=== PATIENT | male | born 1990 | race American Indian/Alaskan Native ===

== ENCOUNTER 2018-02-06 21:57 | Emergency (ER) | payer MEDICAID ==
[2018-02-06] MEDS ORDERED: Gentamicin 0.3% Ophth Soln 5 ML Bottle EYELF ONE (21:58)
[2018-02-06 22:07] VITALS: BP 147/95
[2018-02-06] MEDS ORDERED: Fluorescein 1 MG Ophth Strip EYELF ONE (22:23)
[2018-02-06] MEDS ORDERED: Tetracaine HCl/PF 0.5% 4 ML Bottle EYELF ONE (22:24)
[2018-02-07] MEDS ORDERED: Gentamicin 0.3% Ophth Soln 5 ML Bottle ONE (00:54)
--- NOTE | 2018-02-07 00:56 | EDM.PDOC ---
ED HPI GENERAL MEDICAL PROBLEM - General Chief Complaint: Eye Problems Stated Complaint: SOMETHING IN EYE Time Seen by Provider: 02/07/18 00:20 Source of Information: Reports: Patient History Limitations: Reports: No Limitations - History of Present Illness INITIAL COMMENTS - FREE TEXT/NARRATIVE: cutting wood today and felt something in left eye, moves around. no change in vision. has not irrigated - Related Data Allergies Allergy/AdvReac Type Severity Reaction Status Date / Time No Known Allergies Allergy Verified 02/06/18 22:07 Home Meds: Home Meds . [No Known Home Meds] 01/04/14 [History] Past Medical History - Past Health History Medical/Surgical History: Denies Medical/Surgical History Social & Family History - Family History Family Medical History: Noncontributory - Tobacco Use Smoking Status *Q: Never Smoker Second Hand Smoke Exposure: No - Caffeine Use Caffeine Use: Reports: Soda - Recreational Drug Use Recreational Drug Use: No ED ROS GENERAL - Review of Systems Review Of Systems: ROS reveals no pertinent complaints other than HPI. ED EXAM GENERAL W FULL EYE - Physical Exam Exam: See Below Exam Limited By: No Limitations General Appearance: Alert, No Apparent Distress Eye Exam: Bilateral Eye: EOMI, PERRL Eyelids: Left: Lid Everted for Exam, Stye Conjunctiva & Sclera: Left: Injected Cornea Exam: Left: Normal Appearance, Examined with Flourescein Extraocular Movements: Bilateral: Intact Pupils: Normal Accommodation Pupillary Size: Bilateral: 4 mm Pupillary Reaction: Bilateral: Brisk Ears: Normal External Exam Nose: Normal Inspection Throat/Mouth: Normal Voice Neck: Full Range of Motion Respiratory/Chest: No Respiratory Distress Cardiovascular: Regular Rate, Rhythm ED EYE w/ Add Procedure - Eye Procedure Alcaine Drops Administered: Yes Eye Irrigated w/ Saline (ccs): 30 Antibiotic Oinment/Drps Admin: Left Eye Course - Vital Signs Last Recorded V/S: Last Vital Signs Temp 97.3 F 02/06/18 22:03 Pulse 67 02/06/18 22:03 Resp 18 02/06/18 22:03 BP 147/95 H 02/06/18 22:03 Pulse Ox 99 02/06/18 22:03 - Orders/Labs/Meds Meds: Medications Discontinued Medications Generic Name Dose Route Start Last Admin Trade Name Kimberly PRN Reason Stop Dose Admin Fluorescein Sodium 1 mg 02/06/18 22:23 02/07/18 00:44 Ful-Joann EYELF 02/06/18 22:24 1 mg ONETIME ONE Administration Gentamicin Sulfate Confirm 02/07/18 00:54 02/07/18 01:00 Garamycin 0.3% Ophth Soln Administered 02/07/18 00:55 Not Given Dose 5 ml .ROUTE .STK-MED ONE Tetracaine HCl 1 ml 02/06/18 22:24 02/07/18 00:44 Tetracaine 0.5% Steri-Unit Theresa EYELF 02/06/18 22:25 1 ml ASDIRECTED ONE Administration Departure - Departure Time of Disposition: 00:53 Disposition: Home, Self-Care 01 Condition: Good Clinical Impression: Foreign body of left eye Qualifiers: Encounter type: initial encounter Qualified Code(s): T15.92XA - Foreign body on external eye, part unspecified, left eye, initial encounter - Discharge Information Instructions: Eye Foreign Body, [id number] Referrals: PCP,None [Primary Care Provider] - Forms: ED Department Discharge Additional Instructions: dark glasses tomorow gentamycin eye drops 2 drops 4 times daily to left eye follow up tomorrow in eye clinic if increased redness or irritation
== END 2018-02-07 01:00 | disposition home or self-care (01) ==
LOC: DL.ED 21:57
DX: T15.92XA Foreign body on external eye, part unspecified, left eye, initial encounter (principal)
CPT/HCPCS: 99282; A9270